=== PATIENT | male | born 1980 | race Two or more races ===

== ENCOUNTER 2021-03-27 07:52 | Emergency (ER) | payer MEDICAID ==
[~2021-03-27] VITALS: Ht 170.2 cm; Wt 72.6 kg
[2021-03-27 08:08] VITALS: BP 127/77
[2021-03-27] MEDS ORDERED: METOCLOPRAMIDE HCL 10MG TABLET PO ONE (08:30)
[2021-03-27] MEDS ORDERED: IBUPROFEN 400MG TABLET PO ONE (08:30)
== END 2021-03-27 08:40 | disposition left against medical advice (07) ==
LOC: ER 08:21
DX: R51.9 Headache, unspecified (principal); I10 Essential (primary) hypertension; Z59.0 Homelessness
CPT/HCPCS: 93005; 99283; J8597

== ENCOUNTER 2021-12-07 06:28 | Emergency (ER) | payer MEDICAID ==
[~2021-12-07] VITALS: Ht 172.7 cm; Wt 69.0 kg
[2021-12-07 07:23] LABS: CHLORIDE 108 mEq/L (98-107)
[2021-12-07 07:26] LABS: BASOPHILS % 1.2 % (0.0-2.0); EOSINOPHILS % 3.2 % (0.0-5.0); HEMATOCRIT. 42.7 % (42.0-52.0); HEMOGLOBIN. 15.2 g/dL (14.0-18.0); LYMPHOCYTES % 42.3 % (20.0-50.0); MEAN CORPUSCULAR HEMOGLOBIN 31.7 pg (28.0-32.0); MEAN CORPUSCULAR VOLUME 88.9 fL (80.0-94.0); MEAN PLATELET VOLUME 10.6 fl (7.4-10.4); MONOCYTES % 11.5 % (2.0-8.0); NEUTROPHILS % 41.8 % (40.0-76.0); PLATELET 168 x1000/uL (130-400); RED BLOOD CELL COUNT 4.81 mill/uL (4.7-6.1); RED CELL DISTRIBUTION WIDTH 13.7 % (11.6-14.6)
[2021-12-07] MEDS ORDERED: MORPHINE SULFATE 4 MG/ML CPJ (NOT FOR IM USE) IV ONE (08:15)
[2021-12-07] MEDS ORDERED: SODIUM CHLORIDE 0.9% 1,000 ML IV ONE (08:30)
[2021-12-07 11:29] VITALS: BP 126/68
== END 2021-12-07 11:52 | disposition left against medical advice (07) ==
LOC: ER 06:28 → CANBEDREQ 11:53
DX: R07.89 Other chest pain (principal); I10 Essential (primary) hypertension; Z20.822 Contact with and (suspected) exposure to COVID-19; Z87.11 Personal history of peptic ulcer disease
CPT/HCPCS: 36415; 71045; 80053; 83880; 84484; 85025; 87426; 93005; 96374; 99285; J2270; J7030

== ENCOUNTER 2022-01-27 03:40 | Emergency (ER) | payer MEDICAID ==
[~2022-01-27] VITALS: Ht 172.7 cm; Wt 68.0 kg
[2022-01-27 03:42] VITALS: BP 162/97
== END 2022-01-27 06:04 | disposition left against medical advice (07) ==
LOC: ER 03:40
DX: Z53.21 Procedure and treatment not carried out due to patient leaving prior to being seen by health care provider (principal)
CPT/HCPCS: 93005